=== PATIENT | female | born 1995 | race Caucasian/White ===

== ENCOUNTER 2021-08-18 11:35 | Emergency (ER) | payer MEDICAID ==
[2021-08-18] MEDS ORDERED: Sodium Chloride 0.9% 1,000 ML IV ONE (12:04)
[2021-08-18] MEDS ORDERED: Ondansetron 4 MG/2 ML SDV IVPUSH ONE (12:05)
== END 2021-08-18 13:30 | disposition left against medical advice (07) ==
LOC: MW.ED 11:35
DX: Z53.21 Procedure and treatment not carried out due to patient leaving prior to being seen by health care provider (principal)